=== PATIENT | male | born 1965 | race Caucasian/White ===

== ENCOUNTER → 2016-08-05 | Day surgery (SDC) | payer OTHER ==
[2016-08-05 08:50] LABS: HCT 46.9 % (42.0-52.0); HGB 16.7 g/dl (13.2-18.0); MCH 30.3 pg (25.0-31.0); MCHC 35.6 g/dL (32.0-36.0); MCV 85.1 fL (78.0-100.0); MPV 11.2 fL (6.0-9.5); RBC 5.51 M/uL (4.70-6.00); RDW 13.7 % (11.5-14.0)
[2016-08-05 09:10] LABS: ALBUMIN 4.6 g/dL (3.5-5.0); BILIRUBIN - TOTAL 0.6 mg/dL (0.1-1.0); CREATININE 0.8 mg/dL (0.7-1.2); POTASSIUM 4.1 mmol/L (3.5-5.1); TOTAL PROTEIN 6.6 g/dL (6.4-8.3)
== END | disposition home or self-care (01) ==
LOC: FAS 08:21
PROVIDERS: Surgery
DX: Z12.11 Encounter for screening for malignant neoplasm of colon (principal); D12.2 Benign neoplasm of ascending colon; Z79.899 Other long term (current) drug therapy; Z98.890 Other specified postprocedural states; F17.210 Nicotine dependence, cigarettes, uncomplicated
CPT/HCPCS: 36415; 80053; 88305; J2704